=== PATIENT | female | born 1945 | race Caucasian/White ===

== ENCOUNTER 2018-01-30 12:49 | Inpatient (IN) | payer OTHER ==
[~2018-01-30] VITALS: Ht 160 cm; Wt 95.1 kg
[2018-01-30 13:57] VITALS: BP 153/77
[2018-01-30] MEDS ORDERED: ASPIR-LOW81 MG PO (14:35)
[2018-01-30] MEDS ORDERED: NEURONTIN 300300 M1 PO (14:36)
[2018-01-30] MEDS ORDERED: CELEXA20 MG PO (14:36)
[2018-01-30] MEDS ORDERED: NORCO 5-325 TA1 EACH PO (14:36)
[2018-01-30] MEDS ORDERED: GLIPIZIDE5 MG PO (14:36)
[2018-01-30] MEDS ORDERED: METFORMIN HCL500 MG PO (14:37)
[2018-01-30] MEDS ORDERED: LASIX 20 MG TAB20 MG PO (14:37)
[2018-01-30] MEDS ORDERED: IPRAT-ALBUT 0.5-3 ML INH (14:37)
[2018-01-30] MEDS ORDERED: JANUVIA100 MG PO (14:37)
[2018-01-30] MEDS ORDERED: IRON325 PO (14:37)
[2018-01-30] MEDS ORDERED: ZANAFLEX2 MG PO (14:38)
[2018-01-30] MEDS ORDERED: PRAVACHOL40 MG PO (14:38)
[2018-01-30] MEDS ORDERED: OMEPRAZOLE20 M2 PO (14:38)
[2018-01-30] MEDS ORDERED: VENTOLIN HFA 1818 GM INH (14:38)
[2018-01-30] MEDS ORDERED: [UNRECOGNIZED DRUG - OTHER] PO (14:40)
[2018-01-30] MEDS ORDERED: PANCREATIN PO (14:41)
[2018-01-30] MEDS ORDERED: [UNRECOGNIZED DRUG - OTHER] PO (14:42)
[2018-01-30 15:52] LABS: % SATURATION 4 % (20-39); IRON 19 ug/dL (50-170); TIBC 430 ug/dL (250-450)
[2018-01-30 16:59] VITALS: BP 170/63
--- NOTE | 2018-01-30 17:04 | 2DMMODE ---
[facility] [place] [address] 2 D/M-MODE ECHOCARDIOGRAM Name: FRANKI YANCEY Room #: 200-I ADM IN ..#: [id number] Admission: 01/30/18 Attend Phys: Samantha Bowles MD Discharge: Date of : 47 Date of Service: 01/30/18 1704 Report #: [id number] THIS REPORT FOR: //name// APPROVED REPORT Study performed: 01/30/2018 15:27:18 EXAM: Comprehensive 2D, Doppler, and color-flow Echocardiogram Patient Location: Bedside Room #: 200 Status: routine BSA: 2.01 HR: 90 bpm BP: 153/77 mmHg Rhythm: NSR Other Information Study Quality: Fair Indications COPD Diabetes Dyspnea 2D Dimensions LVOT Diam: 18.54 (18-24mm) IVC: 20.00 mm Aortic Valve AoV Peak Pankaj.: 4.35 m/s AO Peak Gr.: 75.79 mmHg LVOT Max P.48 mmHg AO Mean Gr.: 49.26 mmHg LVOT Mean P.66 mmHg AO V2 Mean: 3.35 m/s LVOT Max V: 1.17 m/s AO V2 VTI: 117.74 cm LVOT Mean V: 0.90 m/s YENY (VTI): 0.67 cm2 LVOT V1 VTI: 29.11 cm YENY Vmax: 0.73 cm2 SV (LVOT): 78.54 mL Pulmonary Valve PV Peak Pankaj.: 0.91 m/s PV Peak Gr.: 3.32 mmHg Tricuspid Valve TR Peak Pankaj.: 3.31 m/s TR Peak Gr.: 43.80 mmHg PA Pressure: 54.00 mmHg [facility] [address] [place] [address] 2 D/M-MODE ECHOCARDIOGRAM Name: FRANKI YANCEY Room #: 200-I ADM IN [facility]#: [id number] Admission: 01/30/18 Attend Phys: Samantha Bowles MD Discharge: Date of : 47 Date of Service: 01/30/18 1704 Report #: [id number] Left Ventricle The left ventricle is normal size. There is normal left ventricular wall thickness. Left ventricular systolic function is hyperdynamic. LVEF is 65-70%. This study is not technically sufficient to allow evaluation of the LV diastolic function. Right Ventricle Right ventricle is dilated. The right ventricular systolic function is normal. Atria The left atrium size is normal. Right atrium is dilated. Aortic Valve The aortic valve is not well visualized. Aortic valve is calcified. No aortic regurgitation is present. Severe aortic stenosis.yeny.7-.8cm2 Mitral Valve The mitral valve is normal in structure. Trace mitral regurgitation. No evidence of mitral valve stenosis. Tricuspid Valve The tricuspid valve is normal in structure. There is mild tricuspid regurgitation. Estimated PAP 54 mmHg. There is moderate pulmonary hypertension. Pulmonic Valve The pulmonary valve is normal in structure. There is no pulmonic valvular regurgitation. Great Vessels The aortic root is normal in size. IVC is dilated and collapses >50% with inspiration. Pericardium There is no pericardial effusion. <Conclusion> The left ventricle is normal size. LVEF is 65-70%. This study is not technically sufficient to allow evaluation of the LV diastolic function. Right ventricle is dilated. Right atrium is dilated. [facility] [place] [address] 2 D/M-MODE ECHOCARDIOGRAM Name: ALMA DELIA YANCEYN Tremayne Room #: 200-I ADM IN M.R.#: [id number] Admission: 01/30/18 Attend Phys: Samantha Bowles MD Discharge: Date of : 47 Date of Service: 01/30/181703 Report #: [id number] The aortic valve is not well visualized. Aortic valve is calcified. Severe aortic stenosis.yeny.7-.8cm2 Trace mitral regurgitation. There is mild tricuspid regurgitation. Estimated PAP 54 mmHg. There is moderate pulmonary hypertension. The aortic root is normal in size. There is no pericardial effusion. <ELECTRONICALLY SIGNED> By: Bruce Carey MD, [facility] 01/30/181703 03 1704 Bruce Carey MD, FACC /INF
[2018-01-30 20:15] VITALS: BP 132/56
[2018-01-31] VITALS (7 sets, daily range): BP systolic 107–129; BP diastolic 48–59
[2018-01-31 04:20] LABS: ABSOLUTE NEUTROPHILS 6.5 thou/uL (1.4-8.2); BASOPHILS 0.1 % (0.0-2.0); HEMOGLOBIN 7.9 gm/dL (12.0-15.0); LYMPHOCYTES 5.1 % (24.0-44.0); MCH 23.9 pg (26.0-34.0); MCHC 31.5 g/dL (28.0-37.0); MCV 75.7 fL (80.0-100.0); MONOCYTES 0.9 % (1.0-8.0); PLATELET COUNT 172 thou/uL (150-400); POLYS 93.9 % (36.0-66.0); RBC 3.31 mil/uL (4.20-5.00); RDW 16.4 % (10.5-14.5); WBC 6.9 thou/uL (4.0-11.0)
[2018-01-31 04:24] LABS: ANION GAP 7 mmol/L (7-16); BUN 19 mg/dL (7-18); CALCIUM 8.9 mg/dL (8.5-10.1); CHLORIDE 102 mmol/L (98-107); CHOLESTEROL 124 mg/dL (<200); CO2 32 mmol/L (21-32); GLUCOSE 220 mg/dL (74-106); HDL CHOLESTEROL 34 mg/dL (>40); LDL CHOLESTEROL 80 mg/dL (<100); MAGNESIUM 1.8 mg/dL (1.8-2.4); POTASSIUM 3.9 mmol/L (3.5-5.1); SODIUM 141 mmol/L (136-145); TC:HDL 3.6 Ratio (Not establshd); TRIGLYCERIDE 53 mg/dL (<150); VLDL 11 mg/dL (<40)
[2018-01-31 04:37] LABS: SERUM ASSESSMENT Clear
[2018-01-31 04:49] LABS: TSH 0.373 uIU/mL (0.358-3.740)
[2018-01-31 06:25] LABS: ANISOCYTOSIS 1+; HYPOCHROMASIA 1+; MICROCYTES 1+; POLYCHROMASIA 1+
--- NOTE | 2018-01-31 06:59 | NUR ---
PT. ABLE TO REST DURING THE NIGHT; COMPLIANT WITH SCDS; STOOL COLLECTED DURING THE MORNING; NPO AFTER MIDNIGHT, BUT MEDS DURING THE MORNING. L. WRIST IV D/C DUE TO C/O PAIN.
[2018-01-31 08:08] LABS: CA 125 50.9 U/mL (0.0-38.1)
--- NOTE | 2018-01-31 16:38 | NUR ---
ASSESSMENTS CHARTED - MEDS PER APR - NO CO'S OF NAUSEA. PT WITH CHRONINC BACK PAIN - NO REQUESTS FOR PAIN MEDICATIONS. PT TO THE [facility]GE MA[facility] SPECIALIST THIS AM - NO INTERVENTION PERFORMED - VSS AND GROIN SITE STABLE POST PROCEDURE. SEEN BY GI DOC AND PT TO HAVE EGD DONE IN THE AM - SHE HAS REFUSED TO HAVE COLONOSCOPY PERFORMED. DR DE DIOS HAS BEEN MAD AWARE. PT STARTED ON IRON THIS SHIFT. PT NOW OFF BEDREST - HAS BEEN UP AND WILL D/C TRUONG PLACED IN [facility] SPECIALIST AFTER DINNER, NO CO'S AT THE PRESENT TIME.
--- NOTE | 2018-01-31 18:12 | HC ---
[facility] [place] [address] CONSULTATION Name: FRANKI YANCEY Room #: 200-I ADM IN .R.#: [id number] Admission: 01/30/18 Attend Phys: Samantha Bowles MD Discharge: Date of : 47 Report #: [id number] THIS REPORT FOR: //name// CC: FAM rafi Anton Alma Samantha Bowles TYPE OF REPORT: Pulmonary consultation. REFERRAL PHYSICIAN: Samantha Bowles M.D. REASON FOR REFERRAL: Abnormal chest CT. HISTORY OF PRESENT ILLNESS: The patient is a 72-year-old white female who was transferred from [facility] for abnormal chest CT. A pulmonary consultation was requested. The patient states that she has smoked most of her life. She has history of severe COPD along with sleep apnea. She has seen Dr. Amador in the past. She states that she has been short of breath for the past 2 weeks. Symptoms have been progressively worse. She has been also complaining of chest discomfort in the bilateral lower chest area located anteriorly. Otherwise, denies any night sweats, fever or chills. She has a mild productive cough of yellowish sputum. She denies any hemoptysis. She denies any recent weight loss. PAST MEDICAL HISTORY: Notable for as mentioned above including COPD, sleep apnea, hyperlipidemia, diabetes mellitus type 2, anemia, gastroesophageal reflux disease, osteoarthritis and peripheral artery disease. PAST SURGICAL HISTORY: Include cholecystectomy, , hernia repair and hysterectomy. ALLERGIES: None noted. CURRENT MEDICATIONS: Aspirin, Celexa, Neurontin, glipizide, [place], DuoNeb, iron supplements, Januvia, Lasix, Glucophage, omeprazole, Pravachol, Ventolin HFA, Zanaflex, labella, pancreatin and yellow [place]. FAMILY HISTORY: Noncontributory. SOCIAL HISTORY: She continues to smoke about a pack a day and has done so for the past 50 years. She denies any alcohol abuse. REVIEW OF SYSTEMS: As mentioned above, otherwise 10-point system review negative. [facility] [address] [place] [address] CONSULTATION Name: FRANKI YANCEY Room #: 200-I ADM IN ..#: [id number] Admission: 01/30/18 Attend Phys: Samantha Bowles MD Discharge: Date of : 47 Report #: [id number] PHYSICAL EXAMINATION: GENERAL: She is awake, alert, appears mildly distressed. VITAL SIGNS: Temperature is 98 degrees Fahrenheit, pulse of 100, respiratory rate is 22, blood pressure is 170/63 mmHg and saturation 96%. HEENT: Normocephalic and atraumatic. NECK: Supple, without any lymphadenopathy or thyromegaly. CHEST: Breath sounds are decreased, mild expiratory wheezes. CARDIOVASCULAR: Normal S1 and S2. There are no murmurs or gallop. There is no JVD. There is no carotid bruit. Pulses are 2+/4+ bilaterally. BREASTS: Exam deferred. ABDOMEN: Moderately obese, soft and nontender. No masses felt. GENITOURINARY: Deferred. RECTAL: Deferred. EXTREMITIES: There is no edema, cyanosis or clubbing. RADIOLOGICAL DATA: CT chest angiogram performed at [facility] shows bilateral pleural effusion, dependent atelectasis, no evidence of pulmonary emboli, mild pulmonary nodules are seen, chronic inflammatory changes also noted along with evidence of enlarged mediastinal adenopathy. Chest x-ray shows patchy bilateral atelectasis and infiltrates. CT of the abdomen shows a left kidney mass measuring 1.3 cm in diameter. The images are not clouded over to the [facility] yet. This has been requested. Echocardiogram performed earlier today showed normal LV function, study was not technically sufficient to evaluate LV function, right ventricle is dilated, right atrium is dilated, severe aortic stenosis is noted and pulmonary artery pressure measured 54 mmHg. LABORATORY DATA: Arterial blood gas performed at [facility] revealed pH 7.4, pCO2 of 52 and pO2 63. Unclear if this was done on FiO2. Rest of the laboratory data is pending. IMPRESSION: 1. Apparently abnormal chest CT showing mediastinal adenopathy, bilateral pleural effusion. We will wait to review the images for further recommendation. 2. Chronic obstructive pulmonary disease with ongoing tobacco abuse. Severity is unknown. 3. Obstructive sleep apnea. Unclear if the patient is on continuous positive airway pressure at home. On oxygen at night. 4. Anemia, questionable gastrointestinal bleed. 5. Fthlt-rv-wcedhnp hypercapnic hypoxic respiratory failure. Probably secondary to chronic obstructive pulmonary disease exacerbation with ongoing tobacco use. 6. Severe aortic stenosis, may be contributing to respiratory distress. 7. Diabetes mellitus. [facility] [address] [place] [address] CONSULTATION Name: YANCEYFRANKI Room #: 200-I ADM IN M.R.#: [id number] Admission: 01/30/18 Attend Phys: Samantha Bowles MD Discharge: Date of : 47 Report #: [id number] 8. Peripheral neuropathy. 9. Moderate obesity. RECOMMENDATIONS: We will await to review the chest CT for further recommendation. Continue bronchodilators, corticosteroids along with broad-spectrum antibiotics. Levaquin now has a third side effect warning with the side effects. We would suggest alternative antibiotics if possible. DVT and GI prophylaxis will be addressed. We will also need to address treatment of sleep apnea. Thank you for this consultation. <ELECTRONICALLY SIGNED> By: Thomas Moreno MD 01/31/18 1812 1759 0237 Thomas Moreno MD /nt
[2018-01-31 20:08] LABS: GLYCOHEMOGLOBIN (HGB A1C) 5.9 % (4.8-5.6)
[2018-02-01 00:45] VITALS: BP 135/57
[2018-02-01 04:15] LABS: HEMATOCRIT 26.8 % (37.0-47.0); HEMOGLOBIN 8.3 gm/dL (12.0-15.0); MCH 23.4 pg (26.0-34.0); MCHC 30.8 g/dL (28.0-37.0); MCV 76.1 fL (80.0-100.0); RBC 3.53 mil/uL (4.20-5.00); RDW 16.4 % (10.5-14.5); WBC 11.9 thou/uL (4.0-11.0)
[2018-02-01 04:21] LABS: CALCIUM 9.1 mg/dL (8.5-10.1); CREATININE 0.9 mg/dL (0.6-1.0); POTASSIUM 4.1 mmol/L (3.5-5.1)
[2018-02-01 04:30] VITALS: BP 145/70
--- NOTE | 2018-02-01 05:25 | NUR ---
ASSUMED PT CARE AT 1900. PT A/O X 4, VITAL SIGNS STABLE, ASSESSMENT CHARTED. NO COMPLAINTS OF CHEST PAIN OR SOB. PT COMPLAINED OF CHRONIC BACK PAIN, PAIN WELL MANAGED WITH MEDICATION. URINARY CATHETER DC'D AT ABOUT 2100, PT ABLE TO AMBULATE TO THE BATHROOM INDEPENDENTLY. EDUCATED PT TO CALL WHEN NEEDING HELP. PT NPO AFTER MIDNIGHT FOR EGD IN AM. PT RESTED WELL THROUGH THE NIGHT. PROGRESSING TOWARD PLAN OF CARE. WILL CONTINUE TO MONITOR.
--- NOTE | 2018-02-01 07:41 | HC ---
[facility] [place] [address] CONSULTATION Name: FRANKI YANCEY Room #: 200-I ADM IN .R.#: [id number] Admission: 01/30/18 Attend Phys: Samantha Bowles MD Discharge: Date of : 47 Report #: [id number] THIS REPORT FOR: //name// CC: Mitch Mack DO FAM unknown Bruce Carey MD [facility] Leighton Moreno MD REASON FOR CONSULTATION: Mediastinal mass as well as adrenal mass and also anemia. HISTORY OF PRESENT ILLNESS: The patient is a 72-year-old female who has been back in town for about the last 2 months for the year. Prior to that, she was in [place]. She reports being told back there she was iron deficient, had declined EGD or colonoscopy and had been on oral iron and I think a last transfusion was a year ago. She also was aware of pulmonary nodules, but not of a mediastinal mass. Note the mediastinal mass has been referred to is a 2.3 cm mass on the [facility] CAT scan from 01/30/2018. Note that this measured 1.4 cm at [place] on 09/08/2015. They suggest an outpatient PET scan. There was no really significantly enlarged mediastinal or hilar lymph nodes. We talked about this and she understands that this would be difficult to biopsy. We will await the outside CAT scans. The patient has been on oral iron, has declined transfusion in the past, though she is telling she is willing to consider endoscopy and also perhaps IV iron. She does report a history of ulcers, but I am not sure if this was a clinical diagnosis or not. She mostly comes in because of shortness of air. Note that she also has critical aortic stenosis. The patient denies fevers or chills, new arm or leg swelling. She does feel somewhat tight she says across her upper chest and abdomen, but I do not really detect anything on exam. Her weight has been stable. No blood that she can tell in her urine or stool. No bowel changes. She is on regular meat and potatoes diet. Has no menstrual bleeding that she is aware of for a large number of years. PAST MEDICAL HISTORY: Notable for history of critical aortic stenosis, I believe the surface area is around 0.7 or 0.8. Also, has a history of anemia, GI has seen her. Also, history of COPD, CHF, GERD, obstructive sleep apnea, hyperlipidemia, depression and peripheral neuropathy. CURRENT MEDICATIONS: Include furosemide 40 mg daily IV, citalopram 20 mg daily, pantoprazole 20 mg daily, Lovenox 40 mg at bedtime, atorvastatin 20 mg at bedtime, gabapentin 300 mg b.i.d., guaifenesin 1200 mg b.i.d., ceftriaxone 2 grams q.24 hours., budesonide respiratory therapy b.i.d., albuterol inhalation as needed, doxycycline q.12 h. IV, methylprednisolone 62.5 q.i.d., tizanidine [address] [address] CONSULTATION Name: FRANKI YANCEY Room #: 200-I ADM IN ..#: [id number] Admission: 01/30/18 Attend Phys: Samantha Bowles MD Discharge: Date of : 47 Report #: [id number] mg b.i.d. p.r.n., hydrocodone q.8 h. p.r.n., insulin on a sliding scale, MiraLax daily, nitroglycerin as needed, Zofran as needed. LABORATORY DATA: Here is notable for BUN of 19, creatinine of 1, glucose of 220. Iron here showed iron of 19, percent sat of 4, TIBC of 430. White count was 6.9, hemoglobin here was 7.9, MCV 75.7, platelets 172. White count has a slight left shift with neutrophils. TSH was 0.373. Ferritin was 8. CEA pending. CA-125 50.9. Vitamin B12 was 313. CA19-9 was drawn and pending. PHYSICAL EXAMINATION: GENERAL: The patient appears her stated age. VITAL SIGNS: Height is 5 feet 3 inches, weight is 218 pounds that is 160 cm or 98.9 kilograms. Blood pressure is 122/54, O2 sat of 95, respirations 20, pulse 84, temperature 98.1. MOOD: The patient is alert and pleasant and conversant. NEUROLOGIC: Face and speech pattern appeared to be normal. She is moving extremities. LUNGS: Appear to have symmetric movement. HEART: Has a murmur, systolic, appears to be regular rate. ABDOMEN: Quite obese. No organomegaly palpable, though it would be difficult to tell. EXTREMITIES: Have trace edema. SKIN: Intact. ASSESSMENT AND PLAN: 1. Mediastinal mass not that large, doubt this is contributing to her shortness of air. We will await final scans. This would be difficult to get to with her stenosis and lung disease. I agree with consideration for an outside PET scan and evaluation. 2. Iron deficiency anemia. I agree with GI approach to consider EGD and also continue PPI. Could consider IV iron. 3. Critical aortic stenosis. We will defer to Pulmonary. 4. Chronic obstructive pulmonary disease, inhalers per others. 5. Diabetes mellitus, insulin and diet per others. 6. Congestive heart failure, meds per others. 7. Gastroesophageal reflux disease. Will probably on an acid yenifer. 8. Report of obstructive sleep apnea. Defer to Pulmonary. 9. Hyperlipidemia. Defer to others. 10. Depression. Defer to others. We will follow with you. <ELECTRONICALLY SIGNED> By: Shaheed Lawton MD 02/01/18 0741 0840 1820 Shaheed Lawton MD /nt
[2018-02-01 08:00] VITALS: BP 171/61
--- NOTE | 2018-02-01 09:04 | CATHLAB ---
[facility] [place] [address] INVASIVE PROCEDURE REPORT Name: NAYEFRANKI M Room #: 200-I ADM IN [facility]#: [id number] Admission: 01/30/18 Attend Phys: Samantha Bowles MD Discharge: Date of : 47 Date of Service: 02/01/18 0903 Report #: [id number] THIS REPORT FOR: //name// APPROVED REPORT Study performed: 01/31/2018 09:45:34 Patient Details Patient Status: In-Patient Room #: The patient is a 72 year-old female Event Personnel Bruce Carey Music Education Director, Luis Fernando Hollins RN, [place] Jennings Monitor, Lolita San RTR, TEXTILE ENGINEER Scrub Procedures Performed Right and Left Heart Cath w/or w/o Coronarie [id number] [facility] Supravalvular Aortography Injection [id number] ISVA Aortogram Abdominal Peripheral Angio 105048 Indication Chest pain Procedure Narrative The Right Groin^ was infiltrated with 1% Lidocaine subcutaneous anesthesia. A PINNACLE 6FR Sheath #[id number] sheath was inserted into the RFA^. Coronary angiography was performed using coronary diagnostic catheters. The right coronary system was accessed and visualized with a JR4 catheter. The left coronary system was accessed and visualized with a JL4 catheter. The left ventricle was accessed and visualized with a PIGTAIL catheter. An aortogram of the ascending aorta was performed. The patient tolerated the procedure well and there were no complications associated with the procedure. There was no hematoma. Intraoperative Conscious Sedation Sedation start time: 10.10 Case end Time: 10.46 Fentanyl 50 mcg Versed 2 mg Fluoro Time: 3.01 minutes Contrast Type and Amount: Visipaque 110 ml Hemodynamics The right atrial mean pressure is 26 mmHg. The right ventricular [facility] [address] [place] [address] INVASIVE PROCEDURE REPORT Name: YANCEYFRANKI M Room #: 200-I [facility].#: [id number] Admission: 01/30/18 Attend Phys: Samantha Bowles MD Discharge: Date of : 47 Date of Service: 02/01/18 0903 Report #: [id number] pressure is 77/19 mmHg. The pulmonary artery pressure is 69/36 mmHg with a mean of 54 mmHg. The mean pulmonary capillary wedge pressure is 38 mmHg. The aortic pressure is 146/53 mmHg with a mean of 86 mmHg. The cardiac output using thermo method is 8.30 L/min. The cardiac index using thermo method is 4.14 L/min/m2. Conclusion #1 successful right heart catheterization with moderately severe pulmonary hypertension and elevated pulmonary E wedge pressure see above hemodynamics #2 supravalvular aortogram severe aortic stenosis with trace of aortic insufficiency. Aortic valve was not crossed #3 abdominal aortogram has mild ectasia but no aneurysm is noted renal arteries appear to be patent. #4 short left main giving rise to LAD and circumflex #5 LAD is minimal plaquing extends around the apex #6 circumflex OM is nondominant but moderate distribution no occlusive disease #7 dominant right coronary artery no occlusive disease Recommendations and plan: Continue aggressive risk factor modification. IV Lasix has been given in the catheter lab. We'll increase diuresis. Close follow-up. Transfer to CCU in improved condition <ELECTRONICALLY SIGNED> By: Bruce Carey MD, FACC 02/01/18902 2 2 Bruce Carey MD, FACC /INF
--- NOTE | 2018-02-01 13:53 | NUR ---
CM ASSESSMENT: CASE OPENED FOR DC PLANNING. CLINICAL INFO REVIEWED. PT ADMITTED FROM [facility] AFTER SEEN BY PCP FOR SOB. PT EVAL'D BY CARDIOLOGY AND GI (FOR ANEMIA). CARDIAC CATH WITHOUT INTERVENTION. SEVERE WITH PAP 70/30. GI DID EGD TODAY WITH NO SOURCE OF BLEEDING IDENTIFIED. RECOMMENDED COLONOSCOPY BUT PT DECLINED. MET WITH PT. SHE LIVES IN [place], [place]. IN [facility] ALONE AND IS INDEPENDENT WITH ADLS. USES NOCTURNAL HOME O2 BUT CANNOT RECALL NAME OF SUPPLIER. CURRENTLY ON O2 2 L NC. PT HAS FAMILY IN [place] AND HER SON WILL PROVIDE TRANSPORTATION HOME. PT STATES SHE JUST STARTED OUTPT P.T. AT [facility] AND WOULD LIKE TO CONTINUE. P.T. TO EVAL TODAY. PT UP AD FELIPE IN ROOM WHEN CM ENTERED. WILL OBTAIN EXERCISE OXIMETRY TO DETERMINE O2 NEEDS FOR DC. LIKELY DC 02/[address] DALE. RN UPDATED.
[2018-02-01 16:45] VITALS: BP 120/53
[2018-02-01 16:48] VITALS: BP 120/53
--- NOTE | 2018-02-01 16:49 | NUR ---
ASSESSMENT CHARTED - MEDS PER NIRANJAN. RODY DIET AND FLUIDS. WAS NPO THIS AM FOR EGD - COMPLETED. UP AD FELIPE IN ROOM - EXERCISE OXIMETRY TO BE COMPLETED TO EVALUATE FOR HOME O2 NEEDS - SPOKE WITH RESP THIS WILL BECOMPLETED TODAY. NO CO'S OF PAIN OR NAUSEA. APPEAR TO BE COMFORTABLE AT THE PRESENT TIME.
[2018-02-01 19:28] VITALS: BP 149/56
[2018-02-02 05:24] LABS: CALCIUM 8.9 mg/dL (8.5-10.1); CREATININE 0.9 mg/dL (0.6-1.0); POTASSIUM 3.4 mmol/L (3.5-5.1)
[2018-02-02 06:12] VITALS: BP 145/58
--- NOTE | 2018-02-02 06:55 | NUR ---
ASSUMED PT CARE AT 1900 WITH REPORT TAKEN. PT IS ALERT AND ORIENTED WITH NO SIGN OF DISTRESS NOTED IN PT. PT IS SITTING AT BEDSIDE, DENIES ANY NEED AT THIS TIME. PT IS STABLE, VITAL SIGNS STABLE. SCHEDULED MEDS ADMINISTERED AT THIS TIME. NO SIGN OF DISTRESS NOTED, DENIES ANY FURTHER NEEDS AT THIS TIME.
[2018-02-02 07:15] VITALS: BP 134/60
[2018-02-02] MEDS ORDERED: CEFUROXIME500 MG PO (08:28)
[2018-02-02] MEDS ORDERED: PREDNISONE 20 M20 MG PO (08:30)
[2018-02-02 11:07] VITALS: BP 138/60
[2018-02-02 12:11] VITALS: BP 138/60
--- NOTE | 2018-02-02 15:32 | NUR ---
ASSUMED CARE OF PT AT 0700. PT A&OX4, UP AD FELIPE. PT'S VITALS WITHIN NORMAL LIMITS AND PT WAS SINUS RHYTHM ON TELEMETRY. PT SEEN BY ATTENDING, PULMONARY AND CARDIOLOGY. DISCHARGE ORDERS RECEIVED. PT REQUIRED OXYGEN AND DR. CARDOZA GAVE TELEPHONE ORDER FOR O2 PER RT REST AND EXCERSIZE SAT NOTE. PRESCRIPTION WRITTEN. VAN FROM PROVIDER PLUS SENT PT HOME WITH TRAVEL OXYGEN (TWO TANKS). PT TO GET WITH HER CURRENT O2 PROVIDER FOR CONTINUOUS OXYGEN. PT HAS OXYGEN AT HOME FOR NIGHT TIME USE. PT COMMUNICATED UNDERSTANDING OF ALL DISCHARGE ORDERS/MEDS AND FOLLOW UP APPTS. PT HAD TWO IV'S AND TELEMETRY BOX/WIRES REMOVED. PT TAKEN TO FRONT ENTRANCE VIA WHEELCHAIR BY STAFF WITH FAMILY TO TAKE HER HOME.
--- NOTE | 2018-02-04 13:58 | NUR ---
FAXED O2 SCRIPT AND CLINICAL NOTES FOR O2 SPOKE WITH ELOY IN ADM. SHE WILL NOTIFY THE [facility] OFFICE AND LET THEM KNOW THAT FAX SENT.
--- NOTE | 2018-02-06 11:07 | PATH ---
[facility] [address] [place] [address] PATHOLOGY RPT PROCEDURE Name: ALMA DELIA AMBRIZN Tremayne Room #: 200-I DIS IN M.R.#: [id number] Admission: 01/30/18 Date of : 47 Discharge: 02/02/18 Report #: [id number] Path Case #: [id number] [facility] Accession Number: [id number] . 01 Material submitted: . RANDOM GASTRIC BX R/O H. PYLORI . 01 Clinical history: . Pre-OP DX: GI bleed, anemia Post-OP DX: Gastritis . 02 Diagnosis: Gastric mucosa, random gastric rule out H. pylori, endoscopic biopsy: - Mild chronic gastritis with features of reactive gastropathy. - Negative for intestinal metaplasia or atrophy. - Negative for Helicobacter pylori (properly controlled immunohistochemical stain performed). (IUV/db; 02/04/18) LBQ/02/04/2018 . 02 Electronically signed: . Shanel Blanco MD, Pathologist NPI- [id number] . 01 Gross description: . Received in formalin labeled "Franki Ambriz, random gastric BX, rule out H. pylori," are multiple segments of hylton soft tissue measuring 1.6 x 0.4 x 0.2 cm in aggregate dimensions. The specimen is filtered and entirely submitted in cassette A1. (TSD; 02/01/2018) TOB/TOB . 02 Pathologist provided ICD-10: K29.50, K31.9 . 02 CPT . 718330, F10468 Specimen Comment: A courtesy copy of this report has been sent to Specimen Comment: [phone], , . Specimen Comment: Report sent to ,DR RG / DR DALE Specimen Comment: A duplicate report has been generated due to demographic updates. Performed at: [address] [facility], [place], [place] [id number] MD Dragan Valles MD Phone: [phone] Performed at: 02 [place] [address] PATHOLOGY RPT PROCEDURE Name: AMBRIZFRANKI Room #: 200-I DIS IN M.R.#: [id number] Admission: 01/30/18 Date of : 47 Discharge: 02/02/18 Report #: [id number] Path Case #: [id number] [facility] [address], [place], [place] [id number] MD Shanel Blanco MD Phone: [phone]
== END 2018-02-02 15:11 | disposition home or self-care (01) | DRG 286 ==
LOC: 2N 12:49
PROVIDERS: Nurse Practitioner; Nurse Practitioner Adult Health; Nurse Practitioner Gerontology; ADMIT Hospitalist
DX: I35.0 Nonrheumatic aortic (valve) stenosis (principal); J96.21 Acute and chronic respiratory failure with hypoxia; J96.22 Acute and chronic respiratory failure with hypercapnia; J98.59 Other diseases of mediastinum, not elsewhere classified; I50.21 Acute systolic (congestive) heart failure; J44.1 Chronic obstructive pulmonary disease with (acute) exacerbation; K29.70 Gastritis, unspecified, without bleeding; E78.5 Hyperlipidemia, unspecified; K21.9 Gastro-esophageal reflux disease without esophagitis; E11.51 Type 2 diabetes mellitus with diabetic peripheral angiopathy without gangrene; M19.90 Unspecified osteoarthritis, unspecified site; F17.210 Nicotine dependence, cigarettes, uncomplicated; R59.0 Localized enlarged lymph nodes; G47.33 Obstructive sleep apnea (adult) (pediatric); E66.01 Morbid (severe) obesity due to excess calories; F32.9 Major depressive disorder, single episode, unspecified; E11.42 Type 2 diabetes mellitus with diabetic polyneuropathy; D50.9 Iron deficiency anemia, unspecified; E05.90 Thyrotoxicosis, unspecified without thyrotoxic crisis or storm; H40.9 Unspecified glaucoma; E27.9 Disorder of adrenal gland, unspecified; N28.9 Disorder of kidney and ureter, unspecified; J45.909 Unspecified asthma, uncomplicated; Z79.82 Long term (current) use of aspirin; Z79.899 Other long term (current) drug therapy; Z90.49 Acquired absence of other specified parts of digestive tract; Z90.710 Acquired absence of both cervix and uterus; Z68.37 Body mass index [BMI] 37.0-37.9, adult; Z71.6 Tobacco abuse counseling
CPT/HCPCS: 10081; 62110; 62900; 70005